=== PATIENT | female | born 1980 ===

== ENCOUNTER 2018-08-09 07:20 | Day surgery (SDC) | payer MEDICAID ==
[2018-08-09] MEDS ORDERED: Lactated Ringer's 500 ML IV ONE (07:52)
[2018-08-09] MEDS ORDERED: Propofol 10 mg/ml Inj (20 ML) ONE (09:07)
[2018-08-09] MEDS ORDERED: ePHEDrine 50 mg/ml Inj ONE (09:08)
[2018-08-09 09:53] VITALS: TEMP 97; O2SAT 100
[2018-08-09 10:00] VITALS: BP 116/64; PULSE 68; RESP 18
== END 2018-08-09 10:20 | disposition home or self-care (01) ==
LOC: H.ENDO 07:20
PROVIDERS: ATTEND Internal Medicine Gastroenterology
DX: K30 Functional dyspepsia (principal); K29.50 Unspecified chronic gastritis without bleeding; K21.9 Gastro-esophageal reflux disease without esophagitis; K31.89 Other diseases of stomach and duodenum
CPT/HCPCS: 43239; 88305; J2001; J2704; J7120